=== PATIENT | female | born 1965 ===

== ENCOUNTER → 2022-06-28 | Outpatient (CLI) | payer MEDICAID ==
[~2022-06-28] VITALS: Ht 152.4 cm; Wt 64.9 kg
[~2022-06-28] MED LIST: ADENOSINE 54 MG in GIVE UN-DILUTED 0 ML IV ONE; ADENOSINE 90 MG/30 ML INJ IV ONE
== END | disposition home or self-care (01) ==
LOC: Rad HDHVI 13:39
PROVIDERS: ATTEND Internal Medicine Cardiovascular Disease
DX: R07.9 Chest pain, unspecified (principal); R42 Dizziness and giddiness; I10 Essential (primary) hypertension; E78.5 Hyperlipidemia, unspecified; Z82.49 Family history of ischemic heart disease and other diseases of the circulatory system; Z79.82 Long term (current) use of aspirin; Z79.899 Other long term (current) drug therapy
CPT/HCPCS: 78452; 93005; 96374; 96375; A9500; J0153

== ENCOUNTER → 2022-06-29 | Outpatient (CLI) | payer MEDICAID | END | disposition home or self-care (01) | LOC: Rad HDHVI 12:54 | PROVIDERS: ATTEND Internal Medicine Cardiovascular Disease | DX: R00.2 Palpitations (principal); R06.02 Shortness of breath | CPT/HCPCS: 93306 ==

== ENCOUNTER → 2022-11-28 | Outpatient (CLI) | payer MEDICAID ==
[~2022-11-28] MED LIST changes: -ADENOSINE 54 MG in GIVE UN-DILUTED 0 ML IV ONE; -ADENOSINE 90 MG/30 ML INJ IV ONE; +ALPR0.25 PO; +ASPI-543 PO; +METO25TA5 PO; +NITR0.4S29 SL
[2022-11-28 08:27] VITALS: BP 127/71
[2022-11-28 08:45] VITALS: BP 124/68
== END | disposition home or self-care (01) ==
LOC: Rad HDHVI 08:16
PROVIDERS: ATTEND Internal Medicine Cardiovascular Disease
DX: Z01.818 Encounter for other preprocedural examination (principal); R07.9 Chest pain, unspecified; M51.34 Other intervertebral disc degeneration, thoracic region; M48.04 Spinal stenosis, thoracic region; G95.89 Other specified diseases of spinal cord
CPT/HCPCS: 71046; 93005; G0463

== ENCOUNTER 2022-12-01 06:57 | Day surgery (SDC) | payer MEDICAID ==
[2022-11-28 11:26] LABS: Basophils % (auto) 0.5 % (0.0-2.0); Eosinophils % (auto) 1.3 % (0.0-7.0); Lymphocytes % (auto) 31.8 % (10.0-50.0); Monocytes % (auto) 4.5 % (0.0-12.0); Neutrophils # (auto) 5.9 10 ^3/uL (1.6-8.6); Neutrophils % (auto) 61.9 % (37.0-80.0); White Blood Cell 9.5 10^3/uL (4.4-10.8)
[2022-11-28 11:27] LABS: Basophils # (auto) 0.1 10 ^3/uL (0-0.2); Eosinophils # (auto) 0.1 10 ^3/uL (0-0.8); Hematocrit 41.2 % (36.0-46.0); Hemoglobin 14.2 g/dL (12.2-16.2); Mean Corpuscular Hemoglobin 29.2 pg (28.0-32.0); Mean Corpuscular Hgb Conc. 34.4 g/dL (32.0-36.0); Monocytes # (auto) 0.4 10 ^3/uL (0-1.3); Red Blood Cells 4.84 10^6/uL (4.0-5.20); Red Cell Distribution Width 14.1 % (11.8-14.3)
[2022-11-28 11:45] LABS: INR 0.96 (0.9-1.15); Partial Thromboplastin Time 26.8 sec (24.6-33.4)
[2022-11-28 11:54] LABS: Potassium 4.1 mmol/L (3.5-5.1)
[2022-11-28 12:03] LABS: BUN/Creatinine Ratio 17.7 (10.0-20.0); Calcium 9.1 mg/dL (8.5-10.1)
[~2022-12-01] VITALS: Ht 152.4 cm; Wt 64.9 kg
[2022-12-01] MEDS ORDERED: IOHEXOL 350 MG/ML 100ML IJ ONE (08:10)
[2022-12-01] MEDS ORDERED: IODIXANOL 320MG/ML 100ML BTL IV ONE (08:10)
[2022-12-01] MEDS ORDERED: LIDOCAINE 2%HCL (LOCAL ANESTH.) INJ 20ML MDV ONE (08:10)
[2022-12-01] MEDS ORDERED: MIDAZOLAM HCL 2MG/2ML 2ml VIAL (1mg/ml) ONE (09:07)
[2022-12-01] MEDS ORDERED: HEPARIN SODIUM (PORCINE) 5000 UNITS/ML 1ML VIAL ONE (09:07)
[2022-12-01] MEDS ORDERED: VERAPAMIL 2.5MG/ML INJ 2ML VIAL IV ONE (09:07)
[2022-12-01] MEDS ORDERED: fentaNYL CITRATE 100 MCG/2 ML VL ONE (09:07)
[2022-12-01] MEDS ORDERED: ANGIOMAX 250 MG VIAL IV ONE (09:07)
[2022-12-01] MEDS ORDERED: SODIUM CHL 0.9% 0 ML ONE (09:08)
== END 2022-12-01 12:10 | disposition home or self-care (01) ==
LOC: CATH 06:57
PROVIDERS: ATTEND Internal Medicine Cardiovascular Disease
DX: R94.39 Abnormal result of other cardiovascular function study (principal); E78.5 Hyperlipidemia, unspecified; I10 Essential (primary) hypertension; Z79.82 Long term (current) use of aspirin; Z79.899 Other long term (current) drug therapy; R06.09 Other forms of dyspnea
CPT/HCPCS: 36415; 80048; 85025; 85610; 85730; 93458; C1725; C1769; C1887; C1894; J1644; J2250; J3010; Q9967; 99152; 99153